=== PATIENT | male | born 1985 | race Caucasian/White ===

== ENCOUNTER 2019-01-12 20:41 | Emergency (ER) | payer OTHER ==
[~2019-01-12] VITALS: Ht 182.9 cm; Wt 76.0 kg
--- NOTE | 2019-01-12 21:10 | NUR ---
PT BIB [facility] FOR TAKING APPROX 15 OF HIS 50MG ZOLOFT. PT DENIES SI/HI. WHEN ASKED WHY HE TOOK THEM HE SAYS "I DONT KNOW" PT HAS HX OF DEPRESSION. 2 BAGS OF BELONGINGS REMOVED. VSS. PT GIVEN URINAL. TO EVALUATE
[2019-01-12 21:15] LABS: BASOPHILS # (AUTO) 0.05 x10^3/uL (0-0.1); BASOPHILS % (AUTO) 1 % (0-1); EOSINOPHILS # (AUTO) 0.83 x10^3/uL (0-0.4); EOSINOPHILS % (AUTO) 11 % (1-7); LYMPHOCYTES # (AUTO) 1.74 x10^3/uL (1-3.4); LYMPHOCYTES % (AUTO) 23 % (22-44); MD NO; MEAN CORPUSCULAR HEMOGLOBIN 30.8 pg (27.5-34.5); MEAN CORPUSCULAR HGB CONC 33.7 g/dL (33.2-36.2); MEAN CORPUSCULAR VOLUME 91.3 fL (81-97); MEAN PLATELET VOLUME 8.3 fL (7.4-10.4); MONOCYTES # (AUTO) 0.23 x10^3/uL (0.2-0.8); MONOCYTES % (AUTO) 3 % (2-9); NEUTROPHILS # (AUTO) 4.77 x10^3/uL (1.8-6.8); NEUTROPHILS % (AUTO) 63 % (42-75); PLATELET COUNT 276 x10^3/uL (130-400); RED BLOOD COUNT 4.92 x10^6/uL (4.38-5.82); RED CELL DISTRIBUTION WIDTH 13.4 % (9.4-14.8)
[2019-01-12 21:27] LABS: ALANINE AMINOTRANSFERASE 46 U/L (12-78); ALBUMIN 4.4 g/dL (3.4-5.0); ANION GAP 7 mmol/L (5-15); CALCIUM 9.3 mg/dL (8.5-10.1); CHLORIDE 110 mmol/L (98-107); CREATININE 1.13 mg/dL (0.7-1.3); SALICYLATE LEVEL < 1.7 mg/dL (2.8-20.0)
[2019-01-12 21:29] LABS: ALKALINE PHOSPHATASE 69 U/L (45-117); BILIRUBIN,TOTAL 0.5 mg/dL (0.2-1.0); TOTAL PROTEIN 7.7 g/dL (6.4-8.2)
--- NOTE | 2019-01-12 21:38 | NUR ---
PTS MOTHER AT BEDSIDE. PT MOTHER WANTS TO BE UP;DATED WITH INFO. PT OK WITH THIS. PTS MOTHER IS NAHID VERA [phone]
--- NOTE | 2019-01-12 22:52 | NUR ---
pt still unable to produce ua. pt given water and will attempt urine sample
--- NOTE | 2019-01-13 00:03 | NUR ---
UA SENT TO LAB
[2019-01-13] MEDS ORDERED: SERT50TA PO (00:13)
[2019-01-13 00:42] LABS: AMPHETAMINE SCREEN, URINE Negative (Negative); BARBITURATE SCREEN, URINE Negative (Negative); BENZODIAZEPINE SCREEN, URINE Negative (Negative); CANNABINOID SCREEN, URINE Negative (Negative); COCAINE SCREEN, URINE Negative (Negative); METHADONE SCREEN, URINE Negative (Negative); OPIATE SCREEN, URINE Negative (Negative)
[2019-01-13 02:07] VITALS: BP 112/71
--- NOTE | 2019-01-13 02:07 | NUR ---
PT SPOKE WITH TELEPSYCH. WAITING FOR [facility] RECOMMENDATION. CALL [facility] IN [facility]
--- NOTE | 2019-01-13 02:52 | NUR ---
Patient given discharge instructions and they have confirmed that they understand the instructions. Patient ambulatory with steady gait.
== END 2019-01-13 02:55 | disposition home or self-care (01) ==
LOC: ED 20:52
DX: T43.222A Poisoning by selective serotonin reuptake inhibitors, intentional self-harm, initial encounter (principal); Y92.89 Other specified places as the place of occurrence of the external cause
CPT/HCPCS: 36415; 80053; 80307; 85025; 93005; 99284